=== PATIENT | female | born 1945 | race Caucasian/White ===

== ENCOUNTER → 2017-02-04 | Outpatient (CLI) | payer SELFPAY ==
--- NOTE | 2017-02-04 10:23 | CT ---
CLINICAL INDICATION: Screening, family history COMPARISON: None PROCEDURE: Gated acquisition of images through the mediastinum was performed without contrast. Data set was used for calcium scoring. FINDINGS: Total coronary calcium score is 18 LM: 0 LAD: 18 LCX: 0 RCA: 0 Extracardiac findings: No pathologically enlarged lymph nodes. The aortic arch is unremarkable in its appearance with norm al vascular configuration. No airspace disease, effusion, or pneumothorax identified. Normal-sized heart. The soft tissues and osseous structures are unremarkable. There is moderate-sized hiatal jennifer ia. IMPRESSION: 1. Calcium score of 18 compatible with mild atherosclerotic plaque. This places the patient at appro ximately the 25th to 50th percentile for females of equivalent age. 2. Moderate-sized hiatal hernia. Reported By:
== END ==
LOC: RAD 08:49
PROVIDERS: ATTEND Family Medicine
DX: Z13.6 Encounter for screening for cardiovascular disorders (principal)